=== PATIENT | male | born 1950 | race Hispanic/Latino ===

== ENCOUNTER 2018-10-28 22:57 | Emergency (ER) | payer OTHER ==
[~2018-10-28] VITALS: Ht 167.6 cm; Wt 99.8 kg
[2018-10-28 23:15] VITALS: BP 151/93
[2018-10-28] MEDS ORDERED: CLONIDINE HCL 0.1 MG TAB PO ONE (23:15)
== END 2018-10-28 23:22 | disposition home or self-care (01) ==
LOC: ER 22:57
DX: I10 Essential (primary) hypertension (principal)
CPT/HCPCS: 99282